=== PATIENT | male | born 1950 | race Caucasian/White ===

== ENCOUNTER 2018-03-26 23:22 | Inpatient (IN) | payer MEDICARE, OTHER ==
[~2018-03-26] VITALS: Ht 170.2 cm; Wt 50.8 kg
[2018-03-26] MEDS ORDERED: NAMENDA5 MG ORAL (23:37)
[2018-03-26] MEDS ORDERED: CITALOPRAM HBR40 M1 ORAL (23:37)
[2018-03-26] MEDS ORDERED: BUPROPION HCL150 M3 ORAL (23:37)
[2018-03-26] MEDS ORDERED: ABILIFY15 MG ORAL (23:38)
--- NOTE | 2018-03-26 23:42 | Emergency Room Report ---
History of Present Illness General Chief Complaint: General Complaint Source: Patient, Medical Record, EMS Present Illness HPI This is a 67-year-old gentleman coming from a half-way. He has multiple medical problem and is bedbound. He's also very contracted with multiple decubital ulcers. He presents with an altered mental status and low blood pressure from a half-way. He was admitted to rule out bacteremia and sepsis. There is no fever. No nausea no vomiting. Per half-way note his mentation is decreased compared to his baseline. There is no drainage from his wound. Denies any other complaint. Similar symptom in the past. Allergies: Coded Allergies: LEVOFLOXACIN (Verified Allergy, Unknown, 03/26/18) SULFAMETHOXAZOLE (Verified Allergy, Unknown, 03/26/18) TRIMETHOPRIM (Verified Allergy, Unknown, 03/26/18) Patient History Past Medical History: see triage record, old chart reviewed Past Surgical History: other Pertinent Family History: none Social History: Denies: smoking Immunizations: UTD Reviewed Nursing Documentation: PMH: Agreed; PSxH: Agreed Nursing Documentation-PMH Hx COPD: Yes - restrictive lung disorder, COPD History Of Psychiatric Problem: Yes - DEPRESSION Review of Systems Constitutional: Reports: weakness Eye: Denies: eye pain, blurred vision ENT: Denies: ear pain, nose congestion, throat swelling Respiratory: Denies: cough, shortness of breath Cardiovascular: Denies: chest pain, palpitations Gastrointestinal: Denies: abdominal pain, diarrhea, nausea, vomiting Musculoskeletal: Denies: back pain, joint pain Skin: Denies: rash Neurological: Denies: headache, numbness Endocrine: Denies: increased thirst, increased urine Hematologic/Lymphatic: Denies: easy bruising All Other Systems: negative except mentioned in HPI Physical Exam Vital Signs Date Time Temp Pulse Resp B/P (MAP) Pulse Ox O2 Delivery O2 Flow Rate FiO2 03/26/18 23:17 97.7 90 18 110/56 95 Room Air vitals normal. Repeat blood pressure Is 89/48 Sp02 EP Interpretation: reviewed, normal General Appearance: alert, cachetic, Chronically Ill Head: normocephalic, atraumatic Eyes: bilateral eye PERRL, bilateral eye EOMI ENT: hearing grossly normal, normal pharynx Neck: full range of motion, supple, no meningismus Respiratory: chest non-tender, lungs clear, normal breath sounds Cardiovascular #1: regular rate, rhythm, no murmur Gastrointestinal: normal bowel sounds, non tender, no mass, no organomegaly, no bruit, non-distended Musculoskeletal: back normal, other - contracted Neurologic: alert, oriented x3 Psychiatric: mood/affect normal Skin: warm/dry, other - Multiple decubital ulcers on hip, lower extremity, back. One right hip his stage 4. Procedures Critical Care Time Critical Care Time Critical care is mandated in this patient who presented with sepsis from UTI. Patient require my urgent intervention to attenuate the risks of metabolic collapse which may lead to cardiovascular collapse and . Critical care time is 35 minutes excluding any reportable procedure. Critical care time included evaluation, multiple reevaluation, looking at old charts, interpreting laboratory and diagnostic data, discussing case with patient and family and consultants, and charting. Medical Decision Making Diagnostic Impression: Primary Impression: Sepsis Qualified Codes: A41.9 - Sepsis, unspecified organism Additional Impressions: UTI (urinary tract infection) Qualified Codes: N30.00 - Acute cystitis without hematuria Anemia Qualified Codes: D64.9 - Anemia, unspecified Decubitus ulcer Qualified Codes: L89.90 - Pressure ulcer of unspecified site, unspecified stage ER Course Patient presents with hypotension secondary to sepsis. Responded with IV fluid. Most likely sources urine in wound wide spectrum antibiotics given. Blood pressure improved with IV fluid. I discussed case with Dr. Terrazas who will admit. EKG Diagnostic Results Rate: normal Rhythm: NSR ST Segments: no acute changes Rhythm Strip Diag. Results Rhythm Strip Time: 00:21 EP Interpretation: yes Rate: 88 Rhythm: NSR, no PVC's, no ectopy Chest X-Ray Diagnostic Results Chest X-Ray Diagnostic Results : Chest X-Ray Ordered: Yes # of Views/Limited/Complete: 1 View Indication: Other - AMS Interpretation: no consolidation, no effusion, no pneumothorax, no acute cardiopulmonary disease, other - spinal surgerical changes Last Vital Signs Date Time Temp Pulse Resp B/P (MAP) Pulse Ox O2 Delivery O2 Flow Rate FiO2 03/26/18 23:17 97.7 90 18 110/56 95 Room Air Status: improved Disposition: ADMITTED INPATIENT Condition: Serious Harsh Sweeney MD Mar 26, 2018 23:42
[2018-03-26] MEDS ORDERED: NS 1000ml 1,600 ML IVLG ONE (23:45)
[2018-03-27] VITALS (8 sets, daily range): BP systolic 84–120; BP diastolic 54–68
[2018-03-27 00:55] LABS: BILIRUBIN, URINE NEGATIVE (NEGATIVE); GLUCOSE, URINE (UA) NEGATIVE (NEGATIVE); KETONES,URINE NEGATIVE (NEGATIVE); LEUKOCYTE ESTERASE ,URINE 1+ (NEGATIVE); NITRITE,URINE NEGATIVE (NEGATIVE); PH,URINE 6 (4.5-8.0); PROTEIN,URINE 2+ (NEGATIVE); UROBILINOGEN,URINE NORMAL MG/DL (0.0-1.0)
[2018-03-27 00:55] LABS: ANION GAP 2 mmol/L (5-15); BLOOD UREA NITROGEN 13 mg/dL (7-18); CALCIUM 9.9 MG/DL (8.5-10.1); CARBON DIOXIDE 35 MMOL/L (21-32); CHLORIDE 99 MMOL/L (98-107); CREATININE 0.5 MG/DL (0.55-1.30); SODIUM 136 MMOL/L (136-145)
[2018-03-27 00:58] LABS: BASOPHILS % (AUTO) 0.4 % (0.0-2.0); EOSINOPHILS % (AUTO) 2.2 % (0.0-3.0); HEMATOCRIT 27.4 % (42.0-52.0); HEMOGLOBIN 8.8 G/DL (14.2-18.0); LYMPHOCYTES % (AUTO) 11.8 % (20.0-45.0); MEAN CORPUSCULAR VOLUME 81 FL (80-99); MONOCYTES % (AUTO) 10.9 % (1.0-10.0); NEUTROPHILS % (AUTO) 74.8 % (45.0-75.0); PLATELET COUNT 554 K/UL (150-450); RED BLOOD COUNT 3.39 M/UL (4.70-6.10); RED CELL DISTRIBUTION WIDTH 14.1 % (11.6-14.8); WHITE BLOOD COUNT 8.7 K/UL (4.8-10.8)
[2018-03-27 01:01] LABS: APPEARANCE,URINE CLEAR; COLOR,URINE YELLOW
[2018-03-27 01:08] LABS: ALANINE AMINOTRANSFERASE 32 U/L (12-78); ALBUMIN 1.9 G/DL (3.4-5.0); ALBUMIN/GLOBULIN RATIO 0.4 (1.0-2.7); ALKALINE PHOSPHATASE 116 U/L (46-116); ASPARTATE AMINO TRANSFERASE 29 U/L (15-37); BILIRUBIN,TOTAL 0.2 MG/DL (0.2-1.0); CKMB 5.3 NG/ML (0.0-3.6); CREATINE KINASE 260 U/L (26-308)
[2018-03-27] MEDS ORDERED: Vancomycin 1 GM in D5W 275 ML IVPB ONE (01:15)
[2018-03-27] MEDS ORDERED: Cefepime HCl 1 GM in D5W 55 ML IVPB ONE (01:15)
[2018-03-27] MEDS ORDERED: METHADONE HCL10 MG PO (05:55)
[2018-03-27] MEDS ORDERED: FLUTICASONE PRO16 G1 NASAL (05:55)
[2018-03-27] MEDS ORDERED: GABAPENTIN600 MG ORAL (05:55)
[2018-03-27] MEDS ORDERED: FERROUS SULFAT325 MG ORAL (05:55)
[2018-03-27] MEDS ORDERED: MIDODRINE HCL10 MG ORAL (05:56)
[2018-03-27] MEDS ORDERED: INVANZ1 GM IVPB (06:30)
[2018-03-27] MEDS ORDERED: SENNA8.6 M2 PO (06:30)
[2018-03-27] MEDS ORDERED: JUVEN PACKET1 EAC1 PO (06:30)
[2018-03-27] MEDS ORDERED: VITAMIN D250000 UNI1 ORAL (06:30)
[2018-03-27] MEDS ORDERED: VIBRAMYCIN100 MG ORAL (06:30)
[2018-03-27] MEDS ORDERED: ASCORBIC ACID500 MG ORAL (06:30)
[2018-03-27] MEDS ORDERED: XGEVA120 MG/1.7 SUBQ (06:30)
[2018-03-27] MEDS ORDERED: ZINC SULFATE220 M1 ORAL (06:30)
[2018-03-27] MEDS ORDERED: CULTURELLE1 EACH ORAL (06:30)
[2018-03-27] MEDS ORDERED: NAMENDA5 MG ORAL (06:30)
[2018-03-27] MEDS ORDERED: ABILIFY15 MG ORAL (06:30)
[2018-03-27] MEDS ORDERED: DUONEB 0.5-3(2.53 ML HHN (06:30)
[2018-03-27] MEDS ORDERED: DOCUSATE SODIU100 MG ORAL (06:30)
[2018-03-27] MEDS ORDERED: HEPARIN SO5000 UNIT2 SUBQ (06:30)
[2018-03-27] MEDS ORDERED: BUPROPION HCL100 MG ORAL (06:30)
[2018-03-27] MEDS ORDERED: CYCLOBENZAPRINE10 MG ORAL (06:30)
[2018-03-27] MEDS ORDERED: DULCOLAX10 MG RC (06:30)
[2018-03-27] MEDS ORDERED: [UNRECOGNIZED DRUG - CODE] PO (06:30)
[2018-03-27] MEDS ORDERED: PANTOPRAZOLE SO40 MG ORAL (06:30)
[2018-03-27] MEDS ORDERED: Albuterol/Ipratropium 3ml neb HHN PRN (07:00)
[2018-03-27] MEDS ORDERED: Midodrine 10mg tab ORAL PRN (07:00)
[2018-03-27] MEDS: 1/2NS w/KCl 20mEq 1000ml 1,000 ML IV SCH (08:00)
[2018-03-27] MEDS ORDERED: Zinc Sulfate 220mg cap ORAL SCH (09:00)
[2018-03-27] MEDS ORDERED: Cyclobenzaprine 10mg Tab ORAL PRN (09:00)
[2018-03-27] MEDS ORDERED: Flonase Nasal Inhaler 16gm NASAL SCH (09:00)
[2018-03-27] MEDS ORDERED: Vitamin D 50,000 units cap ORAL SCH (09:00)
[2018-03-27] MEDS: Memantine 5 MG TAB ORAL SCH ×2 (09:00→17:21)
[2018-03-27] MEDS ORDERED: Lactobacillus-GG tablet ORAL SCH (09:00)
[2018-03-27] MEDS: Heparin 5000 units/ml inj SUBQ SCH ×2 (09:00→21:10)
[2018-03-27] MEDS ORDERED: Ascorbic Acid 500mg tab ORAL SCH (09:00)
[2018-03-27] MEDS ORDERED: Memantine 10mg tab ORAL SCH (09:00)
[2018-03-27] MEDS ORDERED: Docusate 100mg cap ORAL SCH (09:00)
[2018-03-27] MEDS ORDERED: Sennosides 8.6mg tab ORAL SCH (09:00)
[2018-03-27] MEDS: BuPROPion SR 150mg tab ORAL SCH ×2 (09:00→21:08)
--- NOTE | 2018-03-27 09:45 | History and Physical Report ---
DATE OF ADMISSION: 03/27/2018 CHIEF COMPLAINT: Weakness and altered level of consciousness. HISTORY OF PRESENT ILLNESS: This is a 67-year-old unfortunate male from [facility]. I saw the patient several weeks ago in his snf. This is an unfortunate gentleman that comes with history of paraplegia, neurogenic bladder, and multiple decubitus ulcers. The patient has been wandering between multiple hospitals and nursing homes during the last several years. As a result of his spine problems and paralysis, the patient underwent multiple orthopedic procedures and debridement of his decubitus. Among others, the patient was in [facility]. The patient was transferred to this hospital due to altered level of consciousness and hypotension. PAST MEDICAL HISTORY: 1. Neurogenic bladder. 2. Scheuermann's kyphosis deformity, status post T2-L1 fusion posterior. 3. Status post C7-T2 laminectomy. 4. Status post multiple scoliosis surgeries at [facility]. 5. History of paraplegia. 6. History of multiple decubitus ulcers. 7. 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 8. History of recurrent septicemia. 9. Chronic anemia due to chronic infection. 10. Restrictive lung disease. 11. Severe protein-calorie malnutrition. 12. Depression. 13. Recurrent osteomyelitis of the femur and ischial tuberosity of the left hip. MEDICATIONS: Abilify, ascorbic acid, bupropion SR, Celexa, cyclobenzaprine, sodium docusate, doxycycline, Dulcolax, DuoNeb inhalation, vitamin D, ____, iron sulfate, Flonase nasal solution, gabapentin, subcutaneous heparin, Alex nutritional supplement, and lactobacillus. ALLERGIES: To levofloxacin and sulfonamide. FAMILY HISTORY: Unable to obtain. The patient is weak and confused. SOCIAL HISTORY: Unable to obtain. The patient is weak and confused. REVIEW OF SYSTEMS: Unable to obtain. The patient is weak and confused. PHYSICAL EXAMINATION: GENERAL: This is an elderly cachectic male, who is in no acute distress. VITAL SIGNS: Blood pressure 99/60, pulse 84 and regular, respirations 16, and temperature 98.4. HEENT: The head shows advanced muscle wasting and poor dental hygiene. NECK: Supple. Trachea midline. There was no lymphadenopathy or thyromegaly. LUNGS: Few bilateral wheezes. HEART: Regular rate and rhythm without rubs, murmurs, or gallops. ABDOMEN: Soft and nontender. Bowel sounds were active. EXTREMITIES: Notable for advanced muscle wasting. SKIN: He has multiple decubitus ulcers, which include the right ankle, right foot, right heel, left malleolus, right upper buttock, left buttock, and right hip. NEUROLOGIC: The patient has neurogenic bladder. He is paralyzed. He is alert, but debilitated. LABORATORY AND ANCILLARY DATA: CBC, hematocrit 27.4, WBC 8.7. Chemistry, CO2 level to be 35. Albumin 1.9, otherwise within normal limits. Urinalysis, 10 to 15 rbc's, 5 to 10 white blood cells. Cultures results pending. ASSESSMENT: 1. Hypotension, multifactorial, rule out sepsis. 2. Neurogenic bladder. 3. Scheuermann's kyphosis deformity, status post T2-L1 fusion posterior. 4. Status post C7-T2 laminectomy. 5. Status post multiple scoliosis surgeries at [facility]. 6. History of paraplegia. 7. History of multiple decubitus ulcers. 8. 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 9. History of recurrent septicemia. 10. Chronic anemia due to chronic infection. 11. Restrictive lung disease. 12. Severe protein-calorie malnutrition. 13. Depression. 14. Recurrent osteomyelitis of the femur and ischial tuberosity of the left hip. PLAN: 1. IV fluids. 2. Panculture. 3. Modify the patient's medications, which in my opinion include too many mood altering medications. Kinga Marcano M.D. : EZEQUIEL/SHAR JOB#: [id number] CC:
--- NOTE | 2018-03-27 10:48 | Diagnostic Imaging Report ---
Indication: Dyspnea Comparison: None A single view chest radiograph was obtained. Findings: Extensive fusion rods pedicle screws noted throughout the cervical: The thoracic spine. There is an apparent kyphosis deformity of the upper thoracic/cervical spine. The lungs are clear. There are old rib fractures on the right. Heart size is borderline enlarged. The patient is rotated. IMPRESSION: No acute cardiopulmonary disease identified. Extensive fusion of the cervical thoracic spine
--- NOTE | 2018-03-27 11:30 | Consultation ---
DATE OF CONSULTATION: 03/27/2018 INFECTIOUS DISEASES CONSULTATION: CONSULTING PHYSICIAN: Luis Peraza M.D. REFERRING PHYSICIAN: Kinga Marcano M.D. REASON FOR CONSULTATION: Urinary tract infection. HISTORY OF PRESENTING ILLNESS: This is a 67-year-old gentleman with history of neurogenic bladder, kyphosis, status post fusion, status post C7 to T2 laminectomy, and paraplegia who comes in because of altered level of consciousness and hypotension. He was found to have a urinary tract infection and an Infectious Diseases consultation has been obtained for antibiotics. PAST MEDICAL HISTORY: 1. History of neurogenic bladder. 2. Kyphosis, status post C2-L1 fusion. 3. Status post C7 to T2 laminectomy. 4. Scoliosis surgeries. 5. Paraplegia. 6. Decubitus ulcers. 7. Anemia. 8. Restrictive lung disease. 9. Depression. 10. History of recurrent osteomyelitis of the femur and ischial tuberosity of the left hip. SOCIAL HISTORY: Unknown. FAMILY HISTORY: Unknown. REVIEW OF SYSTEMS: Unable to obtain currently. MEDICATIONS: As an inpatient, the patient is on Abilify, ascorbic acid, bupropion, Colace, ergocalciferol, ferrous sulfate, fluticasone, subcutaneous heparin, Lactobacillus, Namenda, methadone, Protonix, Senokot, zinc sulfate, Dulcolax, albuterol, ipratropium, and midodrine. ALLERGIES: 1. Levaquin. 2. Bactrim. PHYSICAL EXAMINATION: VITAL SIGNS: Temperature of 98.7, T-max of. 98.7, pulse of 92, respiratory rate of 16, blood pressure 120/62, and O2 saturation of 98%. HEENT: Pupils equally reactive to light and accommodation. Mouth appears clean without thrush. NECK: Supple. No adenopathy. No JVD. CARDIOVASCULAR: Regular rate and rhythm. No murmurs. LUNGS: Clear to auscultation bilaterally. No crackles. No wheezes. ABDOMEN: Soft and nontender. No organomegaly. EXTREMITIES: No cyanosis, no clubbing, no edema. LABORATORY AND DIAGNOSTIC DATA: White count 8.7, hemoglobin 8.8, hematocrit 27.4, MCV 81, and platelet count of 554 with neutrophils of 74%. Sodium 136, potassium 4, chloride 99, bicarb 35, BUN 13, creatinine 0.5, and glucose 96. Calcium 9.9. Total bilirubin 0.2, AST 29, ALT 32, and alkaline phosphatase 116. CK of 260, CK-MB 5.3, and troponin 0. Total protein 7.2. Albumin 1.9. UA showing 5 to 10 white cells. ASSESSMENT: This is a 67-year-old gentleman with history of paraplegia, scoliosis, and kyphosis who comes in with altered mental status and is found to have. 1. Urinary tract infection. 2. Anemia. 3. Paraplegia. PLAN: 1. We will order urine cultures. 2. We will start the patient on Zosyn. 3. We will follow up cultures and adjust antibiotics accordingly. I would like to thank, Dr. Marcano, for this consultation. Luis Peraza M.D. DR: BRYAN JOB#: [id number] CC: Kinga Marcano M.D.; Fax#: [phone]
--- NOTE | 2018-03-27 11:37 | Consultation ---
History of Present Illness General Date patient seen: Mar 27, 2018 Chief Complaint: General Complaint Reason for Consultation: decutibus ulcers Present Illness HPI 67 year old male with multiple medical comorbidities who is a [facility] resident with paralysis presented after episode of altered mental status and hypotension. Patient at [facility] when noted to be altered. currently admitted to [facility] for care and management. upon admission noted to have multiple decubitus ulcers at different stages of healing. surgery called to evaluate. patient seen, chart reviewed, patient examined. patient awake and responsive. states he is doing better now. no complaints. has noted wounds for some time and states has been taking care of at facilities he has been. Allergies: Coded Allergies: LEVOFLOXACIN (Verified Allergy, Unknown, 03/26/18) SULFAMETHOXAZOLE (Verified Allergy, Unknown, 03/26/18) TRIMETHOPRIM (Verified Allergy, Unknown, 03/26/18) Medication History Scheduled Arginine/Glutamine/Calcium Hmb (Alex Packet), 1 EACH PO DAILY, (Reported) Aripiprazole* (Abilify*), 15 MG ORAL DAILY, (Reported) Aripiprazole* (Abilify*), 15 MG ORAL HS, (Reported) Ascorbic Acid* (Ascorbic Acid*), 500 MG ORAL DAILY, (Reported) Bupropion Hcl* (Bupropion Hcl Sr*), 150 MG ORAL EVERY 12 HOURS, (Reported) Citalopram Hydrobromide* (Citalopram Hbr*), 40 MG ORAL DAILY, (Reported) Cyclobenzaprine Hcl* (Flexeril*), 10 MG ORAL THREE TIMES A DAY, (Reported) Denosumab (Xgeva), 60 MG SUBQ every 6 months, (Reported) Docusate Sodium* (Docusate Sodium*), 200 MG ORAL DAILY, (Reported) Doxycycline Hyclate* (Vibramycin*), 100 MG ORAL EVERY 12 HOURS, (Reported) Ergocalciferol (Vitamin D2)* (Vitamin D*), 50,000 UNIT ORAL ONCE A WEEK, ( Reported) Ertapenem Sodium* (INVanz*), 1 GM IVPB Q24H, (Reported) Ferrous Sulfate* (Ferrous Sulfate*), 325 MG ORAL DAILY, (Reported) Fluticasone Propionate* (Fluticasone Propionate*), 2 SPRAY NASAL DAILY, ( Reported) Gabapentin* (Gabapentin*), 600 MG ORAL BIDAC, (Reported) Heparin Sod (Porcine) (Heparin Sodium*), 5,000 UNITS SUBQ EVERY 12 HOURS, ( Reported) Lactobacillus Rhamnosus Gg* (Culturelle*), 1 CAP ORAL DAILY, (Reported) Memantine Hcl* (Namenda*), 5 MG ORAL TWICE A DAY, (Reported) Memantine Hcl* (Namenda*), 5 MG ORAL TWICE A DAY, (Reported) Methadone Hcl* (Methadone*), 30 MG PO DAILY, (Reported) Pantoprazole* (Pantoprazole*), 40 MG ORAL DAILY, (Reported) Sennosides (Senna), 8.6 MG PO DAILY, (Reported) Zinc Sulfate (Zinc Sulfate*), 220 MG ORAL DAILY, (Reported) [multivital-m], 1 TAB PO DAILY, (Reported) Scheduled PRN Bisacodyl (Dulcolax), 10 MG RC DAILY PRN for Constipation, (Reported) Ipratropium/Albuterol Sulfate (DuoNeb 0.5-3(2.5)mg/3ml), 3 ML HHN BID PRN for Shortness of Breath, (Reported) Midodrine* (Proamatine*), 5 MG ORAL BID PRN for For hypotension, (Reported) Discontinued Medications Bupropion Hcl* (Bupropion Hcl*), 150 MG ORAL DAILY, (Reported) Discontinued Reason: Medication dose changed Patient History History Provided By: Patient, Medical Record, PMD Healthcare decision maker Resuscitation status Advanced Directive on File Past Medical/Surgical History Past Medical/Surgical History: (1) Decubitus ulcer (2) Anemia (3) Sepsis (4) UTI (urinary tract infection) (5) Sepsis (6) UTI (urinary tract infection) Review of Systems All Other Systems: negative except mentioned in HPI Physical Exam General Appearance: no apparent distress, alert Lines, tubes and drains: peripheral HEENT: mucous membranes moist Neck: normal inspection Respiratory/Chest: normal breath sounds, no respiratory distress, no accessory muscle use Cardiovascular/Chest: normal rate Abdomen: soft, no organomegaly, no mass Extremities: other Skin Exam: other Neurologic: alert, responsive, other Last 24 Hour Vital Signs Date Time Temp Pulse Resp B/P (MAP) Pulse Ox O2 Delivery O2 Flow Rate FiO2 03/27/18 08:00 98.7 92 16 120/62 (81) 11/2/18 07:51 98 03/27/18 04:19 Room Air 03/27/18 04:00 98.2 86 16 99/60 (73) 84 03/27/18 04:00 85 03/27/18 02:46 90 03/27/18 02:40 97.9 86 112/68 (83) 94 03/27/18 02:30 98.1 85 16 101/56 98 Room Air 03/27/18 02:30 98.1 88 16 101/56 99 Room Air 03/27/18 00:00 98.2 88 15 97/54 99 Room Air 03/27/18 00:00 87 16 Room Air 98 03/26/18 23:17 97.7 90 18 110/56 95 Room Air Intake and Output 03/26/18 03/27/18 19:00 07:00 Intake Total 1100 ml Output Total 625 ml Balance 475 ml Intake IV Total 1100 ml Output Urine Total 625 ml Laboratory Tests Test 03/27/18 00:30 03/27/18 00:32 White Blood Count 8.7 K/UL (4.8-10.8) Red Blood Count 3.39 M/UL (4.70-6.10) L Hemoglobin 8.8 G/DL (14.2-18.0) L Hematocrit 27.4 % (42.0-52.0) L Mean Corpuscular Volume 81 FL (80-99) Mean Corpuscular Hemoglobin 25.9 PG (27.0-31.0) L Mean Corpuscular Hemoglobin Concent 32.0 G/DL (32.0-36.0) Red Cell Distribution Width 14.1 % (11.6-14.8) Platelet Count 554 K/UL (150-450) H Mean Platelet Volume 4.6 FL (6.5-10.1) L Neutrophils (%) (Auto) 74.8 % (45.0-75.0) Lymphocytes (%) (Auto) 11.8 % (20.0-45.0) L Monocytes (%) (Auto) 10.9 % (1.0-10.0) H Eosinophils (%) (Auto) 2.2 % (0.0-3.0) Basophils (%) (Auto) 0.4 % (0.0-2.0) Sodium Level 136 MMOL/L (136-145) Potassium Level 4.0 MMOL/L (3.5-5.1) Chloride Level 99 MMOL/L (98-107) Carbon Dioxide Level 35 MMOL/L (21-32) H Anion Gap 2 mmol/L (5-15) L Blood Urea Nitrogen 13 mg/dL (7-18) Creatinine 0.5 MG/DL (0.55-1.30) L Estimat Glomerular Filtration Rate > 60 mL/min (>60) Glucose Level 96 MG/DL (74-106) Lactic Acid Level 0.80 mmol/L (0.4-2.0) Calcium Level 9.9 MG/DL (8.5-10.1) Total Bilirubin 0.2 MG/DL (0.2-1.0) Aspartate Amino Transf (AST/SGOT) 29 U/L (15-37) Alanine Aminotransferase (ALT/SGPT) 32 U/L (12-78) Alkaline Phosphatase 116 U/L (46-116) Total Creatine Kinase 260 U/L (26-308) Creatine Kinase MB 5.3 NG/ML (0.0-3.6) H Creatine Kinase MB Relative Index 2.0 Troponin I 0.000 ng/mL (0.000-0.056) Total Protein 7.2 G/DL (6.4-8.2) Albumin 1.9 G/DL (3.4-5.0) L Globulin 5.3 g/dL Albumin/Globulin Ratio 0.4 (1.0-2.7) L Urine Color Yellow Urine Appearance Clear Urine pH 6 (4.5-8.0) Urine Specific [place] 1.025 (1.005-1.035) Urine Protein 2+ (NEGATIVE) H Urine Glucose (UA) Negative (NEGATIVE) Urine Ketones Negative (NEGATIVE) Urine Blood 2+ (NEGATIVE) H Urine Nitrite Negative (NEGATIVE) Urine Bilirubin Negative (NEGATIVE) Urine Urobilinogen Normal MG/DL (0.0-1.0) Urine Leukocyte Esterase 1+ (NEGATIVE) H Urine RBC 10-15 /HPF (0 - 0) H Urine WBC 5-10 /HPF (0 - 0) H Urine Squamous Epithelial Cells None /LPF (NONE/OCC) Urine Calcium Oxalate Crystals Few /LPF (NONE) Urine Bacteria Few /HPF (NONE) Microbiology Date/Time Source Procedure Growth Status 03/27/18 01:30 Rectum Received Height (Feet): 5 Height (Inches): 7.00 Weight (Pounds): 112 Medications Current Medications Medications (Trade) Dose Ordered Sig/Birdie Route PRN Reason Start Time Stop Time Status Last Admin Dose Admin Albuterol/ Ipratropium (Albuterol/ Ipratropium) 3 ml BIDPRN PRN HHN Shortness of Breath 03/27/18 07:00 04/01/18 06:59 Aripiprazole (Abilify) 15 mg Q12HR ORAL 03/27/18 09:00 04/26/18 08:59 03/27/18 09:00 Ascorbic Acid (Vitamin C) 500 mg DAILY ORAL 03/27/18 09:00 04/26/18 08:59 03/27/18 09:00 Bisacodyl (Dulcolax) 10 mg DAILYPRN PRN RECTAL Constipation 03/27/18 07:00 04/26/18 06:59 Bupropion HCl (Wellbutrin SR) 150 mg EVERY 12 HOURS ORAL 03/27/18 09:00 04/26/18 08:59 03/27/18 09:00 Docusate Sodium (Colace) 200 mg DAILY ORAL 03/27/18 09:00 04/26/18 08:59 03/27/18 09:00 Ergocalciferol (Drisdol) 50,000 intlu ONCE A WEEK ORAL 03/27/18 09:00 04/26/18 08:59 03/27/18 09:00 Ferrous Sulfate (Feosol) 325 mg DAILY ORAL 03/27/18 09:00 04/26/18 08:59 03/27/18 09:00 Fluticasone Propionate (Flonase) 2 spray DAILY NASAL 03/27/18 09:00 04/26/18 08:59 03/27/18 11:03 Heparin Sodium (Porcine) (Heparin 5000 units/ml) 5,000 units EVERY 12 HOURS SUBQ 03/27/18 09:00 04/26/18 08:59 03/27/18 09:00 Lactobacillus Acidophilus (Culturelle) 1 tab DAILY ORAL 03/27/18 09:00 04/26/18 08:59 03/27/18 09:00 Memantine (Namenda) 5 mg TWICE A DAY ORAL 03/27/18 09:00 04/26/18 08:59 03/27/18 09:00 Methadone HCl (Methadone HCl) 30 mg DAILYPRN PRN ORAL 30-45 minutes before woundcare 03/27/18 09:00 04/03/18 08:59 03/27/18 11:05 Midodrine (Pro-Amatine) 5 mg BIDPRN PRN ORAL SBP less than 90 03/27/18 07:00 04/26/18 06:59 Pantoprazole (Protonix) 40 mg DAILY ORAL 03/27/18 09:00 04/26/18 08:59 03/27/18 09:00 Piperacillin Sod/ Tazobactam Sod 3.375 gm/Dextrose 100 ml @ 25 mls/hr EVERY 8 HOURS IV 03/27/18 12:00 04/01/18 11:59 Sennosides (Senokot) 8.6 mg DAILY ORAL 03/27/18 09:00 04/26/18 08:59 03/27/18 09:00 Sodium 1,000 ml @ 50 mls/hr Q20H IV 03/27/18 08:00 04/26/18 07:59 03/27/18 08:00 Zinc Sulfate (Zinc Sulfate) 220 mg DAILY ORAL 03/27/18 09:00 04/26/18 08:59 03/27/18 09:00 Assessment/Plan Problem List: (1) Decubitus ulcer Assessment & Plan: Pt presents with multiple pressure injuries. Full thickness pressure injury to Thoracic spine(L)2cm x (W)2cm x (D)2.6cm with undermining 9-3by 3.8cm @11o'clock. Borders and periwound indurated with non- blanchable erythema. Small amt non-odorous serosanguineous exudate noted. Inferior,but in close proximity to above wound 2nd full thickness pressure injury noted with 100% slough(L)0.4cm x (W)0.3cm with red indurated borders. #3 non-blanchable red areas noted to posterior R ribs in close proximity. Full thickness pressure injury to R trochanter (L)11.7cm x (W)10cm x(D)0.7cm .Wound bed moist,with 25% mixed slough/necrosis ,but otherwise granular with macerated. Periwound erythema with induration noted. Full thickness pressure injury to R Iliac(L)7cm x (W)6.7cm x (D) 1.2cm.[id number] by 2.1cm @12o'clock. Wound bed moist,granular with trace biofilm noted. small amt non-odorous serous exudate noted. Full thickness pressure injury to R Ischium (L)7cm x (W)5cm x (D) 3.5cm.Undermining 11-1by3.5cm @12 o'clock.Wound bed 75% mixed slough / necrosis.Small amt purulent exudate with mild odor noted. Full thickness pressure injury with 100% soft khanna necrosis noted to sacrum(L) 5.5cm x (W)2.5cm .Borders and periwound indurated with non-blanchable erythema noted . Scattered non-blanchable red areas noted to both shoulders, both elbows and R earlobe. Full thickness pressure injury to lateral R malleolus with 95% eschar with bordering soft slough (L)1.7cm x (W)2cm .Detached red borders .Periwound with non-blanchable erythema. Distal lateral R foot with stable dry eschar (L)1cm x (W)1cm Periwound without erythema or induration. R heel Boggy with Non-blanchable erythema with maroon discoloration centrally (L )2.2cm x (W)1.5cm 2.2cm x (W)1.4cm. L 1st metatarsal DTPI Noted .Wound bed fluctuant-maroon with red borders (L) 2.5cm x (W)1.5cm. DTPI noted to R achilles .Wound bed fluctuant -maroon with red borders(L)3cm x ( W)2 cm. Distal R tibia full thickness pressure injury with 75% slough otherwise pink with red borders. L heel Boggy with non-blanchable erythema Tx. Plan: Cleanse wounds R ischium,Sacrum and Back with Saline.Pack loosely with Therahoney impregnated gauze.Apply Cavilon Periwound. Cover with Abd pad with Tegaderm drsg daily and prn. Cleanse wound R trochanter with Saine.Loosely pack with Hydrogel impregnated Gauze.Cavilon to Borders.Cover with Optifoam drsg Daily and prn. Apply Cavilon to R earlobe and cover with Optifoam drsg. Change every 7 days and prn. Cleanse wound lateral R tibia with Saline.Apply Therahoney and cover with Optifoam drsg every 3 dyas and prn Maintain protective Optifoam drsgs to R and L hips and change every 7 days and prn. Apply Cavilon Wipes to Both heels, DTPIs and red areas both feet .Cover with Abd pads and wrap both lower ext with soft torrie.Change every 3 days and prn. Reposition at minimum every [address] hours [address] as tolerated[address] pillow between knees. Air Fluidized mattress. Off-load heels with pillow. ICD Codes: L89.90 - Pressure ulcer of unspecified site, unspecified stage SNOMED: [id number] Qualifiers: Qualified Codes: L89.90 - Pressure ulcer of unspecified site, unspecified stage (2) Sepsis ICD Codes: A41.9 - Sepsis, unspecified organism SNOMED: 89740509 Qualifiers: Qualified Codes: A41.9 - Sepsis, unspecified organism Regulo Hobbs Mar 27, 2018 11:37
[2018-03-28] VITALS: BP 100/55
[2018-03-28 04:00] VITALS: BP 96/57
[2018-03-28] MEDS: 1/2NS w/KCl 20mEq 1000ml 1,000 ML IV SCH ×2 (04:20→08:30)
[2018-03-28 05:09] LABS: HEMATOCRIT 27.8 % (42.0-52.0); HEMOGLOBIN 8.7 G/DL (14.2-18.0); MEAN CORPUSCULAR VOLUME 82 FL (80-99); PLATELET COUNT 495 K/UL (150-450); RED CELL DISTRIBUTION WIDTH 14.6 % (11.6-14.8); WHITE BLOOD COUNT 11.1 K/UL (4.8-10.8)
[2018-03-28 05:21] LABS: ANION GAP 6 mmol/L (5-15); BLOOD UREA NITROGEN 9 mg/dL (7-18); CALCIUM 10.2 MG/DL (8.5-10.1); CARBON DIOXIDE 33 MMOL/L (21-32); CHLORIDE 100 MMOL/L (98-107); CREATININE 0.6 MG/DL (0.55-1.30); POTASSIUM 3.7 MMOL/L (3.5-5.1); SODIUM 139 MMOL/L (136-145)
[2018-03-28 08:00] VITALS: BP 97/53
[2018-03-28] MEDS: Lactobacillus-GG tablet ORAL SCH (08:47)
[2018-03-28] MEDS: Memantine 5 MG TAB ORAL SCH ×2 (08:47→18:09)
[2018-03-28] MEDS: Ascorbic Acid 500mg tab ORAL SCH (08:47)
[2018-03-28] MEDS: Docusate 100mg cap ORAL SCH (08:48)
[2018-03-28] MEDS: Sennosides 8.6mg tab ORAL SCH (08:48)
[2018-03-28] MEDS: Flonase Nasal Inhaler 16gm NASAL SCH (08:48)
[2018-03-28] MEDS: Zinc Sulfate 220mg cap ORAL SCH (08:48)
[2018-03-28] MEDS: Heparin 5000 units/ml inj SUBQ SCH ×2 (08:51→22:08)
[2018-03-28] MEDS: BuPROPion SR 150mg tab ORAL SCH ×2 (08:54→22:13)
--- NOTE | 2018-03-28 09:24 | General Surgery Progress Note ---
General Surgery-Progress Note Subjective Additional Comments leukocytosis 11k. no acute events. comfortable Objective Last 24 Hour Vital Signs Date Time Temp Pulse Resp B/P (MAP) Pulse Ox O2 Delivery O2 Flow Rate FiO2 03/28/18 04:00 98.5 86 16 96/57 (70) 93 03/28/18 04:00 79 03/28/18 00:00 98.8 93 20 100/55 (70) 91 03/28/18 00:00 91 03/27/18 22:17 93 Room Air 03/27/18 21:00 Room Air 03/27/18 20:00 99.1 101 16 84/58 (67) 91 03/27/18 20:00 98 03/27/18 16:00 98.4 93 18 107/60 (76) 97 03/27/18 16:00 97 03/27/18 12:00 97 03/27/18 12:00 98.5 92 16 109/64 (79) 03/27/18 12:00 95 I&O Intake and Output 03/27/18 03/28/18 18:59 06:59 Intake Total 1150 ml 768.7 ml Output Total 850 ml 550 ml Balance 300 ml 218.7 ml Intake Oral 350 ml 120 ml IV Total 600 ml 648.7 ml Other 200 ml Output Urine Total 850 ml 550 ml Dressing: saturated Wound: other Drains: other Cardiovascular: RSR Respiratory: clear Abdomen: soft, non-tender, present bowel sounds Extremities: other Laboratory Tests Test 03/28/18 03:20 White Blood Count 11.1 K/UL (4.8-10.8) H Red Blood Count 3.40 M/UL (4.70-6.10) L Hemoglobin 8.7 G/DL (14.2-18.0) L Hematocrit 27.8 % (42.0-52.0) L Mean Corpuscular Volume 82 FL (80-99) Mean Corpuscular Hemoglobin 25.6 PG (27.0-31.0) L Mean Corpuscular Hemoglobin Concent 31.4 G/DL (32.0-36.0) L Red Cell Distribution Width 14.6 % (11.6-14.8) Platelet Count 495 K/UL (150-450) H Mean Platelet Volume 3.9 FL (6.5-10.1) L Neutrophils (%) (Auto) % (45.0-75.0) Lymphocytes (%) (Auto) % (20.0-45.0) Monocytes (%) (Auto) % (1.0-10.0) Eosinophils (%) (Auto) % (0.0-3.0) Basophils (%) (Auto) % (0.0-2.0) Neutrophils % (Manual) Pending Lymphocytes % (Manual) Pending Platelet Estimate Pending Platelet Morphology Pending Sodium Level 139 MMOL/L (136-145) Potassium Level 3.7 MMOL/L (3.5-5.1) Chloride Level 100 MMOL/L (98-107) Carbon Dioxide Level 33 MMOL/L (21-32) H Anion Gap 6 mmol/L (5-15) Blood Urea Nitrogen 9 mg/dL (7-18) Creatinine 0.6 MG/DL (0.55-1.30) Estimat Glomerular Filtration Rate > 60 mL/min (>60) Glucose Level 113 MG/DL (74-106) H Calcium Level 10.2 MG/DL (8.5-10.1) H Magnesium Level 1.7 MG/DL (1.8-2.4) L Plan Problems: (1) Decubitus ulcer Assessment & Plan: Pt presents with multiple pressure injuries. Full thickness pressure injury to Thoracic spine(L)2cm x (W)2cm x (D)2.6cm with undermining 9-3by 3.8cm @11o'clock. Borders and periwound indurated with non- blanchable erythema. Small amt non-odorous serosanguineous exudate noted. Inferior,but in close proximity to above wound 2nd full thickness pressure injury noted with 100% slough(L)0.4cm x (W)0.3cm with red indurated borders. #3 non-blanchable red areas noted to posterior R ribs in close proximity. Full thickness pressure injury to R trochanter (L)11.7cm x (W)10cm x(D)0.7cm .Wound bed moist,with 25% mixed slough/necrosis ,but otherwise granular with macerated. Periwound erythema with induration noted. Full thickness pressure injury to R Iliac(L)7cm x (W)6.7cm x (D) 1.2cm.[id number] by 2.1cm @12o'clock. Wound bed moist,granular with trace biofilm noted. small amt non-odorous serous exudate noted. Full thickness pressure injury to R Ischium (L)7cm x (W)5cm x (D) 3.5cm.Undermining 11-1by3.5cm @12 o'clock.Wound bed 75% mixed slough / necrosis.Small amt purulent exudate with mild odor noted. Full thickness pressure injury with 100% soft khanna necrosis noted to sacrum(L) 5.5cm x (W)2.5cm .Borders and periwound indurated with non-blanchable erythema noted . Scattered non-blanchable red areas noted to both shoulders, both elbows and R earlobe. Full thickness pressure injury to lateral R malleolus with 95% eschar with bordering soft slough (L)1.7cm x (W)2cm .Detached red borders .Periwound with non-blanchable erythema. Distal lateral R foot with stable dry eschar (L)1cm x (W)1cm Periwound without erythema or induration. R heel Boggy with Non-blanchable erythema with maroon discoloration centrally (L )2.2cm x (W)1.5cm 2.2cm x (W)1.4cm. L 1st metatarsal DTPI Noted .Wound bed fluctuant-maroon with red borders (L) 2.5cm x (W)1.5cm. DTPI noted to R achilles .Wound bed fluctuant -maroon with red borders(L)3cm x ( W)2 cm. Distal R tibia full thickness pressure injury with 75% slough otherwise pink with red borders. L heel Boggy with non-blanchable erythema Tx. Plan: Cleanse wounds R ischium,Sacrum and Back with Saline.Pack loosely with Therahoney impregnated gauze.Apply Cavilon Periwound. Cover with Abd pad with Tegaderm drsg daily and prn. Cleanse wound R trochanter with Saine.Loosely pack with Hydrogel impregnated Gauze.Cavilon to Borders.Cover with Optifoam drsg Daily and prn. Apply Cavilon to R earlobe and cover with Optifoam drsg. Change every 7 days and prn. Cleanse wound lateral R tibia with Saline.Apply Therahoney and cover with Optifoam drsg every 3 dyas and prn Maintain protective Optifoam drsgs to R and L hips and change every 7 days and prn. Apply Cavilon Wipes to Both heels, DTPIs and red areas both feet .Cover with Abd pads and wrap both lower ext with soft torrie.Change every 3 days and prn. Reposition at minimum every 2 hours or as tolerated. Place pillow between knees. Air Fluidized mattress. Off-load heels with pillow. (2) Sepsis Regulo Hobbs Mar 28, 2018 09:24
[2018-03-28 12:00] VITALS: BP 91/48
[2018-03-28] MEDS ORDERED: NS 275ml ONE (13:17)
[2018-03-28] MEDS ORDERED: Tubing IV Secondary IV ONE (13:17)
--- NOTE | 2018-03-28 14:48 | General Progress Note ---
Assessment/Plan Assessment/Plan Hypetension resolvin. IV Abx per ID. DC planning Subjective Allergies: Coded Allergies: LEVOFLOXACIN (Verified Allergy, Unknown, 03/26/18) SULFAMETHOXAZOLE (Verified Allergy, Unknown, 03/26/18) TRIMETHOPRIM (Verified Allergy, Unknown, 03/26/18) Subjective No new c/o Objective Last 24 Hour Vital Signs Date Time Temp Pulse Resp B/P (MAP) Pulse Ox O2 Delivery O2 Flow Rate FiO2 03/28/18 09:00 Room Air 03/28/18 08:00 97.7 88 20 97/53 (68) 93 03/28/18 08:00 89 03/28/18 04:00 98.5 86 16 96/57 (70) 93 03/28/18 04:00 79 03/28/18 00:00 98.8 93 20 100/55 (70) 91 03/28/18 00:00 91 03/27/18 22:17 93 Room Air 03/27/18 21:00 Room Air 03/27/18 20:00 99.1 101 16 84/58 (67) 91 03/27/18 20:00 98 03/27/18 16:00 98.4 93 18 107/60 (76) 97 03/27/18 16:00 97 Intake and Output 03/27/18 03/28/18 19:00 07:00 Intake Total 1200 ml 793.7 ml Output Total 850 ml 550 ml Balance 350 ml 243.7 ml Intake Oral 350 ml 120 ml IV Total 650 ml 673.7 ml Other 200 ml Output Urine Total 850 ml 550 ml Laboratory Tests 03/28/18 03:20: White Blood Count 11.1H, Red Blood Count 3.40L, Hemoglobin 8.7L, Hematocrit 27.8L, Mean Corpuscular Volume 82, Mean Corpuscular Hemoglobin 25.6L, Mean Corpuscular Hemoglobin Concent 31.4L, Red Cell Distribution Width 14.6, Platelet Count 495H, Mean Platelet Volume 3.9L, Neutrophils (%) (Auto) , Lymphocytes (%) (Auto) , Monocytes (%) (Auto) , Eosinophils (%) (Auto) , Basophils (%) (Auto) , Differential Total Cells Counted 100, Neutrophils % ( Manual) 95H, Lymphocytes % (Manual) 1L, Monocytes % (Manual) 2, Eosinophils % ( Manual) 0, Basophils % (Manual) 0, Band Neutrophils 2, Platelet Estimate IncreasedH, Platelet Morphology Normal, Hypochromasia 1+, Anisocytosis 1+, Sodium Level 139, Potassium Level 3.7, Chloride Level 100, Carbon Dioxide Level 33H, Anion Gap 6, Blood Urea Nitrogen 9, Creatinine 0.6, Estimat Glomerular Filtration Rate > 60, Glucose Level 113H, Calcium Level 10.2H, Magnesium Level 1.7L Height (Feet): 5 Height (Inches): 7.00 Weight (Pounds): 112 Objective Cachectic Cv RR Lungs CTA Abd SNT. BS + E No CCE Decubs same Kinga Marcano MD Mar 28, 2018 14:48
--- NOTE | 2018-03-28 15:03 | Cardiology Report ---
APPROVED REPORT EKG Measurement Heart [id number] Normal sinus rhythm Moderate voltage criteria for LVH, may be normal variant Borderline ECG
[2018-03-28 16:00] VITALS: BP 131/75
[2018-03-28 20:00] VITALS: BP 102/60
[2018-03-29] VITALS: BP 91/54
[2018-03-29] MEDS: 1/2NS w/KCl 20mEq 1000ml 1,000 ML IV SCH (00:18)
[2018-03-29 04:00] VITALS: BP 113/64
[2018-03-29 08:00] VITALS: BP 111/74
[2018-03-29] MEDS: Docusate 100mg cap ORAL SCH (08:07)
[2018-03-29] MEDS: Ascorbic Acid 500mg tab ORAL SCH (08:07)
[2018-03-29] MEDS: Sennosides 8.6mg tab ORAL SCH (08:07)
[2018-03-29] MEDS: Flonase Nasal Inhaler 16gm NASAL SCH (08:07)
[2018-03-29] MEDS: BuPROPion SR 150mg tab ORAL SCH ×2 (08:08→21:55)
[2018-03-29] MEDS: Memantine 5 MG TAB ORAL SCH ×2 (08:08→17:10)
[2018-03-29] MEDS: Zinc Sulfate 220mg cap ORAL SCH (08:08)
[2018-03-29] MEDS: Lactobacillus-GG tablet ORAL SCH (08:08)
[2018-03-29] MEDS: Heparin 5000 units/ml inj SUBQ SCH ×2 (08:09→21:56)
[2018-03-29] MEDS ORDERED: Midodrine 10mg tab ORAL PRN (08:30)
[2018-03-29] MEDS ORDERED: Albuterol/Ipratropium 3ml neb HHN PRN (08:30)
--- NOTE | 2018-03-29 09:31 | Infectious Diseases Prog Note ---
Assessment/Plan Assessment/Plan A; Fungal UTI Multiple pressure ulcer, ? infection VRE colonization Altered mental status Anemia Paraplegia Cachexia P: Continue Zosyn, add fluconazole Subjective ROS Limited/Unobtainable: No Constitutional: Reports: no symptoms Respiratory: Reports: no symptoms Cardiovascular: Reports: no symptoms Gastrointestinal/Abdominal: Reports: no symptoms Genitourinary: Reports: no symptoms Allergies: Coded Allergies: LEVOFLOXACIN (Verified Allergy, Unknown, 03/26/18) SULFAMETHOXAZOLE (Verified Allergy, Unknown, 03/26/18) TRIMETHOPRIM (Verified Allergy, Unknown, 03/26/18) Objective Vital Signs Last 24 Hour Vital Signs Date Time Temp Pulse Resp B/P (MAP) Pulse Ox O2 Delivery O2 Flow Rate FiO2 03/29/18 09:15 98 Room Air 03/29/18 08:00 97.3 89 18 111/74 (86) 95 03/29/18 04:00 85 03/29/18 04:00 98.3 89 21 113/64 (80) 86 03/29/18 00:00 85 03/29/18 00:00 98.2 89 21 91/54 (66) 92 03/28/18 22:02 95 Room Air 03/28/18 21:00 Room Air 03/28/18 20:00 97.3 101 22 102/60 (74) 86 03/28/18 20:00 104 03/28/18 16:00 97.7 92 20 131/75 (93) 92 03/28/18 16:00 95 03/28/18 12:00 97.7 66 16 91/48 (62) 87 03/28/18 12:00 93 Height (Feet): 5 Height (Inches): 7.00 Weight (Pounds): 112 General Appearance: cachetic HEENT: mucous membranes moist Respiratory/Chest: lungs clear Cardiovascular: normal rate Abdomen: soft, non tender Extremities: no edema Skin: ulcers, other - multiple more in right side Neurologic/Psychiatric: alert, responsive, other - paraplegic Microbiology Date/Time Source Procedure Growth Status 03/27/18 00:40 Blood Blood Culture - Preliminary NO GROWTH AFTER 48 HOURS Resulted 03/27/18 00:30 Blood Blood Culture - Preliminary NO GROWTH AFTER 48 HOURS Resulted 03/27/18 00:40 Other Gram Stain - Final Resulted 03/27/18 00:40 Wound Culture - Preliminary Gram Negative Bacillus 1 Resulted 03/27/18 14:00 Urine,Clean Catch Urine Culture - Preliminary YEAST Resulted 03/27/18 03:20 Sacral Wound Gram Stain - Final Resulted 03/27/18 03:20 Wound Culture - Preliminary Gram Negative Bacillus 1 Resulted 03/27/18 01:30 Rectum VRE Culture - Final Enterococcus Faecium - Vre Complete Current Medications Medications (Trade) Dose Ordered Sig/Birdie Route PRN Reason Start Time Stop Time Status Last Admin Dose Admin Albuterol/ Ipratropium (Albuterol/ Ipratropium) 3 ml BIDPRN PRN HHN Shortness of Breath 03/29/18 08:30 04/01/18 08:29 Aripiprazole (Abilify) 15 mg Q12HR ORAL 03/28/18 09:00 04/26/18 08:59 03/29/18 08:07 Ascorbic Acid (Vitamin C) 500 mg DAILY ORAL 03/28/18 09:00 04/26/18 08:59 03/29/18 08:07 Bisacodyl (Dulcolax) 10 mg DAILYPRN PRN RECTAL Constipation 03/29/18 08:30 04/26/18 08:29 Bupropion HCl (Wellbutrin SR) 150 mg EVERY 12 HOURS ORAL 03/28/18 09:00 04/26/18 08:59 03/29/18 08:08 Docusate Sodium (Colace) 200 mg DAILY ORAL 03/28/18 09:00 04/26/18 08:59 03/29/18 08:07 Ergocalciferol (Drisdol) 50,000 intlu ONCE A WEEK ORAL 04/03/18 09:00 04/26/18 08:59 Ferrous Sulfate (Feosol) 325 mg DAILY ORAL 03/28/18 09:00 04/26/18 08:59 03/29/18 08:08 Fluticasone Propionate (Flonase) 2 spray DAILY NASAL 03/28/18 09:00 04/26/18 08:59 03/29/18 08:07 Heparin Sodium (Porcine) (Heparin 5000 units/ml) 5,000 units EVERY 12 HOURS SUBQ 03/28/18 09:00 04/26/18 08:59 03/29/18 08:09 Lactobacillus Acidophilus (Culturelle) 1 tab DAILY ORAL 03/28/18 09:00 04/26/18 08:59 03/29/18 08:08 Memantine (Namenda) 5 mg TWICE A DAY ORAL 03/28/18 09:00 04/26/18 08:59 03/29/18 08:08 Methadone HCl (Methadone HCl) 30 mg DAILYPRN PRN ORAL 30-45 minutes before woundcare 03/28/18 09:00 04/03/18 08:59 03/29/18 05:01 Midodrine (Pro-Amatine) 5 mg BIDPRN PRN ORAL SBP less than 90 03/29/18 08:30 04/26/18 08:29 Pantoprazole (Protonix) 40 mg DAILY ORAL 03/28/18 09:00 04/26/18 08:59 03/29/18 08:08 Piperacillin Sod/ Tazobactam Sod 3.375 gm/Dextrose 100 ml @ 25 mls/hr EVERY 8 HOURS IV 03/28/18 14:00 04/01/18 11:59 03/29/18 05:35 Sennosides (Senokot) 8.6 mg DAILY ORAL 03/28/18 09:00 04/26/18 08:59 03/29/18 08:07 Sodium 1,000 ml @ 50 mls/hr Q20H IV 03/28/18 08:30 04/26/18 08:29 03/29/18 00:18 Zinc Sulfate (Zinc Sulfate) 220 mg DAILY ORAL 03/28/18 09:00 04/26/18 08:59 03/29/18 08:08 Aníbal Gee MD Mar 29, 2018 09:31
[2018-03-29] MEDS: Fluconazole 100mg tab ORAL SCH (10:20)
[2018-03-29 12:00] VITALS: BP 127/74
--- NOTE | 2018-03-29 12:30 | General Surgery Progress Note ---
General Surgery-Progress Note Subjective Additional Comments no acute events. stable. comfortable. Objective Last 24 Hour Vital Signs Date Time Temp Pulse Resp B/P (MAP) Pulse Ox O2 Delivery O2 Flow Rate FiO2 03/29/18 09:15 98 Room Air 03/29/18 09:00 Room Air 03/29/18 08:00 97.3 89 18 111/74 (86) 95 03/29/18 08:00 95 03/29/18 04:00 85 03/29/18 04:00 98.3 89 21 113/64 (80) 86 03/29/18 00:00 85 03/29/18 00:00 98.2 89 21 91/54 (66) 92 03/28/18 22:02 95 Room Air 03/28/18 21:00 Room Air 03/28/18 20:00 97.3 101 22 102/60 (74) 86 03/28/18 20:00 104 03/28/18 16:00 97.7 92 20 131/75 (93) 92 03/28/18 16:00 95 I&O Intake and Output 03/28/18 03/29/18 18:59 06:59 Intake Total 75 ml 150 ml Output Total 1700 ml 900 ml Balance -1625 ml -750 ml Intake Oral 150 ml IV Total 75 ml Output Urine Total 1700 ml 900 ml Dressing: saturated Wound: other Drains: other Cardiovascular: RSR Respiratory: clear Abdomen: soft, non-tender, present bowel sounds Extremities: other Plan Problems: (1) Decubitus ulcer Assessment & Plan: Pt presents with multiple pressure injuries. Full thickness pressure injury to Thoracic spine(L)2cm x (W)2cm x (D)2.6cm with undermining 9-3by 3.8cm @11o'clock. Borders and periwound indurated with non- blanchable erythema. Small amt non-odorous serosanguineous exudate noted. Inferior,but in close proximity to above wound 2nd full thickness pressure injury noted with 100% slough(L)0.4cm x (W)0.3cm with red indurated borders. #3 non-blanchable red areas noted to posterior R ribs in close proximity. Full thickness pressure injury to R trochanter (L)11.7cm x (W)10cm x(D)0.7cm .Wound bed moist,with 25% mixed slough/necrosis ,but otherwise granular with macerated. Periwound erythema with induration noted. Full thickness pressure injury to R Iliac(L)7cm x (W)6.7cm x (D) 1.2cm.[id number] by 2.1cm @12o'clock. Wound bed moist,granular with trace biofilm noted. small amt non-odorous serous exudate noted. Full thickness pressure injury to R Ischium (L)7cm x (W)5cm x (D) 3.5cm.Undermining 11-1by3.5cm @12 o'clock.Wound bed 75% mixed slough / necrosis.Small amt purulent exudate with mild odor noted. Full thickness pressure injury with 100% soft khanna necrosis noted to sacrum(L) 5.5cm x (W)2.5cm .Borders and periwound indurated with non-blanchable erythema noted . Scattered non-blanchable red areas noted to both shoulders, both elbows and R earlobe. Full thickness pressure injury to lateral R malleolus with 95% eschar with bordering soft slough (L)1.7cm x (W)2cm .Detached red borders .Periwound with non-blanchable erythema. Distal lateral R foot with stable dry eschar (L)1cm x (W)1cm Periwound without erythema or induration. R heel Boggy with Non-blanchable erythema with maroon discoloration centrally (L )2.2cm x (W)1.5cm 2.2cm x (W)1.4cm. L 1st metatarsal DTPI Noted .Wound bed fluctuant-maroon with red borders (L) 2.5cm x (W)1.5cm. DTPI noted to R achilles .Wound bed fluctuant -maroon with red borders(L)3cm x ( W)2 cm. Distal R tibia full thickness pressure injury with 75% slough otherwise pink with red borders. L heel Boggy with non-blanchable erythema Tx. Plan: Cleanse wounds R ischium,Sacrum and Back with Saline.Pack loosely with Therahoney impregnated gauze.Apply Cavilon Periwound. Cover with Abd pad with Tegaderm drsg daily and prn. Cleanse wound R trochanter with Saine.Loosely pack with Hydrogel impregnated Gauze.Cavilon to Borders.Cover with Optifoam drsg Daily and prn. Apply Cavilon to R earlobe and cover with Optifoam drsg. Change every 7 days and prn. Cleanse wound lateral R tibia with Saline.Apply Therahoney and cover with Optifoam drsg every 3 dyas and prn Maintain protective Optifoam drsgs to R and L hips and change every 7 days and prn. Apply Cavilon Wipes to Both heels, DTPIs and red areas both feet .Cover with Abd pads and wrap both lower ext with soft torrie.Change every 3 days and prn. Reposition at minimum every 2 hours or as tolerated. Place pillow between knees. Air Fluidized mattress. Off-load heels with pillow. (2) Sepsis Regulo Hobbs Mar 29, 2018 12:30
--- NOTE | 2018-03-29 12:55 | General Progress Note ---
Assessment/Plan Assessment/Plan Hypetension resolving. IV Abx per ID. DC planning Subjective Allergies: Coded Allergies: LEVOFLOXACIN (Verified Allergy, Unknown, 03/26/18) SULFAMETHOXAZOLE (Verified Allergy, Unknown, 03/26/18) TRIMETHOPRIM (Verified Allergy, Unknown, 03/26/18) Subjective No new c/o Objective Last 24 Hour Vital Signs Date Time Temp Pulse Resp B/P (MAP) Pulse Ox O2 Delivery O2 Flow Rate FiO2 03/29/18 09:15 98 Room Air 03/29/18 09:00 Room Air 03/29/18 08:00 97.3 89 18 111/74 (86) 95 03/29/18 08:00 95 03/29/18 04:00 85 03/29/18 04:00 98.3 89 21 113/64 (80) 86 03/29/18 00:00 85 03/29/18 00:00 98.2 89 21 91/54 (66) 92 03/28/18 22:02 95 Room Air 03/28/18 21:00 Room Air 03/28/18 20:00 97.3 101 22 102/60 (74) 86 03/28/18 20:00 104 03/28/18 16:00 97.7 92 20 131/75 (93) 92 03/28/18 16:00 95 Intake and Output 03/28/18 03/29/18 18:59 06:59 Intake Total 75 ml 150 ml Output Total 1700 ml 900 ml Balance -1625 ml -750 ml Intake Oral 150 ml IV Total 75 ml Output Urine Total 1700 ml 900 ml Height (Feet): 5 Height (Inches): 7.00 Weight (Pounds): 112 Objective Cachectic Cv RR Lungs CTA Abd SNT. BS + E No CCE Decubs same Kinga Marcano MD Mar 29, 2018 12:55
[2018-03-29 16:00] VITALS: BP 130/86
[2018-03-29 19:54] VITALS: BP 121/74
[2018-03-30] VITALS: BP 110/59
[2018-03-30] MEDS: 1/2NS w/KCl 20mEq 1000ml 1,000 ML IV SCH (00:45)
[2018-03-30 04:00] VITALS: BP 105/70
[2018-03-30 08:00] VITALS: BP 124/73
[2018-03-30] MEDS: Lactobacillus-GG tablet ORAL SCH (08:35)
[2018-03-30] MEDS: Memantine 5 MG TAB ORAL SCH (08:35)
[2018-03-30] MEDS: Fluconazole 100mg tab ORAL SCH (08:35)
[2018-03-30] MEDS: Sennosides 8.6mg tab ORAL SCH (08:35)
[2018-03-30] MEDS: Docusate 100mg cap ORAL SCH (08:36)
[2018-03-30] MEDS: BuPROPion SR 150mg tab ORAL SCH (08:36)
[2018-03-30] MEDS: Ascorbic Acid 500mg tab ORAL SCH (08:36)
[2018-03-30] MEDS: Flonase Nasal Inhaler 16gm NASAL SCH (08:36)
[2018-03-30] MEDS: Zinc Sulfate 220mg cap ORAL SCH (08:36)
[2018-03-30] MEDS: Heparin 5000 units/ml inj SUBQ SCH (08:38)
[2018-03-30 11:23] LABS: HEMATOCRIT 29.7 % (42.0-52.0); HEMOGLOBIN 9.6 G/DL (14.2-18.0); MEAN CORPUSCULAR VOLUME 82 FL (80-99); PLATELET COUNT 542 K/UL (150-450); RED BLOOD COUNT 3.62 M/UL (4.70-6.10); RED CELL DISTRIBUTION WIDTH 14.2 % (11.6-14.8); WHITE BLOOD COUNT 10.1 K/UL (4.8-10.8)
--- NOTE | 2018-03-30 11:33 | Infectious Diseases Prog Note ---
Assessment/Plan Assessment/Plan antibiotics : zosyn, fluconazole A 1. fungal UTI 2. paraplegia 3. anemia 4. rectal VRE colonization P 1. continue fluconazole 5 more days 2. d/c zosyn 3. will follow up cultures Subjective ROS Limited/Unobtainable: Yes Allergies: Coded Allergies: LEVOFLOXACIN (Verified Allergy, Unknown, 03/26/18) SULFAMETHOXAZOLE (Verified Allergy, Unknown, 03/26/18) TRIMETHOPRIM (Verified Allergy, Unknown, 03/26/18) Objective Vital Signs Last 24 Hour Vital Signs Date Time Temp Pulse Resp B/P (MAP) Pulse Ox O2 Delivery O2 Flow Rate FiO2 03/30/18 09:00 Room Air 03/30/18 08:00 98.2 61 17 124/73 (90) 94 03/30/18 07:45 98 03/30/18 04:00 94 03/30/18 04:00 98.2 85 22 105/70 (82) 93 03/30/18 00:00 98.2 85 20 110/59 (76) 96 03/29/18 21:00 Room Air 03/29/18 20:00 85 03/29/18 19:54 98.2 88 20 121/74 (90) 94 03/29/18 16:00 94 03/29/18 16:00 97.2 85 20 130/86 (101) 96 03/29/18 12:00 95 03/29/18 12:00 97.3 94 18 127/74 (91) 95 Height (Feet): 5 Height (Inches): 7.00 Weight (Pounds): 112 Respiratory/Chest: lungs clear Cardiovascular: normal rate, regular rhythm, no gallop/murmur Abdomen: soft, non tender Extremities: no edema Microbiology Date/Time Source Procedure Growth Status 03/27/18 14:00 Urine,Clean Catch Urine Culture - Final YEAST Complete Laboratory Tests Test 03/30/18 11:00 White Blood Count 10.1 K/UL (4.8-10.8) Red Blood Count 3.62 M/UL (4.70-6.10) L Hemoglobin 9.6 G/DL (14.2-18.0) L Hematocrit 29.7 % (42.0-52.0) L Mean Corpuscular Volume 82 FL (80-99) Mean Corpuscular Hemoglobin 26.4 PG (27.0-31.0) L Mean Corpuscular Hemoglobin Concent 32.2 G/DL (32.0-36.0) Red Cell Distribution Width 14.2 % (11.6-14.8) Platelet Count 542 K/UL (150-450) H Mean Platelet Volume 4.2 FL (6.5-10.1) L Neutrophils (%) (Auto) % (45.0-75.0) Lymphocytes (%) (Auto) % (20.0-45.0) Monocytes (%) (Auto) % (1.0-10.0) Eosinophils (%) (Auto) % (0.0-3.0) Basophils (%) (Auto) % (0.0-2.0) Neutrophils % (Manual) Pending Lymphocytes % (Manual) Pending Platelet Estimate Pending Platelet Morphology Pending Sodium Level Pending Potassium Level Pending Chloride Level Pending Carbon Dioxide Level Pending Blood Urea Nitrogen Pending Creatinine Pending Estimat Glomerular Filtration Rate Pending Glucose Level Pending Calcium Level Pending Total Bilirubin Pending Aspartate Amino Transf (AST/SGOT) Pending Alanine Aminotransferase (ALT/SGPT) Pending Alkaline Phosphatase Pending Total Protein Pending Albumin Pending Globulin Pending Current Medications Medications (Trade) Dose Ordered Sig/Birdie Route PRN Reason Start Time Stop Time Status Last Admin Dose Admin Albuterol/ Ipratropium (Albuterol/ Ipratropium) 3 ml BIDPRN PRN HHN Shortness of Breath 03/29/18 08:30 04/01/18 08:29 Aripiprazole (Abilify) 15 mg Q12HR ORAL 03/28/18 09:00 04/26/18 08:59 03/30/18 08:35 Ascorbic Acid (Vitamin C) 500 mg DAILY ORAL 03/28/18 09:00 04/26/18 08:59 03/30/18 08:36 Bisacodyl (Dulcolax) 10 mg DAILYPRN PRN RECTAL Constipation 03/29/18 08:30 04/26/18 08:29 Bupropion HCl (Wellbutrin SR) 150 mg EVERY 12 HOURS ORAL 03/28/18 09:00 04/26/18 08:59 03/30/18 08:36 Docusate Sodium (Colace) 200 mg DAILY ORAL 03/28/18 09:00 04/26/18 08:59 03/30/18 08:36 Ergocalciferol (Drisdol) 50,000 intlu ONCE A WEEK ORAL 04/03/18 09:00 04/26/18 08:59 Ferrous Sulfate (Feosol) 325 mg DAILY ORAL 03/28/18 09:00 04/26/18 08:59 03/30/18 08:36 Fluconazole (Diflucan) 200 mg DAILY ORAL 03/29/18 10:00 04/05/18 09:59 03/30/18 08:35 Fluticasone Propionate (Flonase) 2 spray DAILY NASAL 03/28/18 09:00 04/26/18 08:59 03/30/18 08:36 Heparin Sodium (Porcine) (Heparin 5000 units/ml) 5,000 units EVERY 12 HOURS SUBQ 03/28/18 09:00 04/26/18 08:59 03/30/18 08:38 Lactobacillus Acidophilus (Culturelle) 1 tab DAILY ORAL 03/28/18 09:00 04/26/18 08:59 03/30/18 08:35 Memantine (Namenda) 5 mg TWICE A DAY ORAL 03/28/18 09:00 04/26/18 08:59 03/30/18 08:35 Methadone HCl (Methadone HCl) 30 mg DAILYPRN PRN ORAL 30-45 minutes before woundcare 03/28/18 09:00 04/03/18 08:59 03/29/18 15:38 Midodrine (Pro-Amatine) 5 mg BIDPRN PRN ORAL SBP less than 90 03/29/18 08:30 04/26/18 08:29 Pantoprazole (Protonix) 40 mg DAILY ORAL 03/28/18 09:00 04/26/18 08:59 03/30/18 08:36 Piperacillin Sod/ Tazobactam Sod 3.375 gm/Dextrose 100 ml @ 25 mls/hr EVERY 8 HOURS IV 03/28/18 14:00 04/01/18 11:59 03/30/18 06:13 Sennosides (Senokot) 8.6 mg DAILY ORAL 03/28/18 09:00 04/26/18 08:59 03/30/18 08:35 Sodium 1,000 ml @ 50 mls/hr Q20H IV 03/28/18 08:30 04/26/18 08:29 03/30/18 00:45 Zinc Sulfate (Zinc Sulfate) 220 mg DAILY ORAL 03/28/18 09:00 04/26/18 08:59 03/30/18 08:36 Luis Peraza MD Mar 30, 2018 11:33
[2018-03-30 11:51] LABS: ALANINE AMINOTRANSFERASE 21 U/L (12-78); ALBUMIN/GLOBULIN RATIO 0.4 (1.0-2.7); ALKALINE PHOSPHATASE 105 U/L (46-116); ANION GAP 3 mmol/L (5-15); ASPARTATE AMINO TRANSFERASE 17 U/L (15-37); BILIRUBIN,TOTAL 0.2 MG/DL (0.2-1.0); BLOOD UREA NITROGEN 9 mg/dL (7-18); CALCIUM 9.5 MG/DL (8.5-10.1); CARBON DIOXIDE 33 MMOL/L (21-32); CHLORIDE 102 MMOL/L (98-107); CREATININE 0.5 MG/DL (0.55-1.30); POTASSIUM 4.3 MMOL/L (3.5-5.1); SODIUM 138 MMOL/L (136-145)
[2018-03-30 12:00] VITALS: BP 110/76
--- NOTE | 2018-03-30 12:55 | General Surgery Progress Note ---
General Surgery-Progress Note Subjective Additional Comments no acute events. doing well. comfortable. Objective Last 24 Hour Vital Signs Date Time Temp Pulse Resp B/P (MAP) Pulse Ox O2 Delivery O2 Flow Rate FiO2 03/30/18 09:00 Room Air 03/30/18 08:00 98.2 61 17 124/73 (90) 94 03/30/18 07:45 98 03/30/18 04:00 94 03/30/18 04:00 98.2 85 22 105/70 (82) 93 03/30/18 00:00 98.2 85 20 110/59 (76) 96 03/29/18 21:00 Room Air 03/29/18 20:00 85 03/29/18 19:54 98.2 88 20 121/74 (90) 94 03/29/18 16:00 94 03/29/18 16:00 97.2 85 20 130/86 (101) 96 I&O Intake and Output 03/29/18 03/30/18 18:59 06:59 Intake Total 360 ml Output Total 1200 ml 400 ml Balance -840 ml -400 ml Intake Oral 360 ml Output Urine Total 1200 ml 400 ml Dressing: saturated Wound: other Drains: other Cardiovascular: RSR Respiratory: clear Abdomen: soft, flat, non-tender, present bowel sounds Extremities: other Laboratory Tests Test 03/30/18 11:00 White Blood Count 10.1 K/UL (4.8-10.8) Red Blood Count 3.62 M/UL (4.70-6.10) L Hemoglobin 9.6 G/DL (14.2-18.0) L Hematocrit 29.7 % (42.0-52.0) L Mean Corpuscular Volume 82 FL (80-99) Mean Corpuscular Hemoglobin 26.4 PG (27.0-31.0) L Mean Corpuscular Hemoglobin Concent 32.2 G/DL (32.0-36.0) Red Cell Distribution Width 14.2 % (11.6-14.8) Platelet Count 542 K/UL (150-450) H Mean Platelet Volume 4.2 FL (6.5-10.1) L Neutrophils (%) (Auto) % (45.0-75.0) Lymphocytes (%) (Auto) % (20.0-45.0) Monocytes (%) (Auto) % (1.0-10.0) Eosinophils (%) (Auto) % (0.0-3.0) Basophils (%) (Auto) % (0.0-2.0) Differential Total Cells Counted 100 Neutrophils % (Manual) 93 % (45-75) H Lymphocytes % (Manual) 2 % (20-45) L Monocytes % (Manual) 5 % (1-10) Eosinophils % (Manual) 0 % (0-3) Basophils % (Manual) 0 % (0-2) Band Neutrophils 0 % (0-8) Platelet Estimate Adequate Platelet Morphology Normal Hypochromasia 2+ Anisocytosis 1+ Sodium Level 138 MMOL/L (136-145) Potassium Level 4.3 MMOL/L (3.5-5.1) Chloride Level 102 MMOL/L (98-107) Carbon Dioxide Level 33 MMOL/L (21-32) H Anion Gap 3 mmol/L (5-15) L Blood Urea Nitrogen 9 mg/dL (7-18) Creatinine 0.5 MG/DL (0.55-1.30) L Estimat Glomerular Filtration Rate > 60 mL/min (>60) Glucose Level 119 MG/DL (74-106) H Calcium Level 9.5 MG/DL (8.5-10.1) Total Bilirubin 0.2 MG/DL (0.2-1.0) Aspartate Amino Transf (AST/SGOT) 17 U/L (15-37) Alanine Aminotransferase (ALT/SGPT) 21 U/L (12-78) Alkaline Phosphatase 105 U/L (46-116) Total Protein 6.9 G/DL (6.4-8.2) Albumin 2.0 G/DL (3.4-5.0) L Globulin 4.9 g/dL Albumin/Globulin Ratio 0.4 (1.0-2.7) L Plan Problems: (1) Decubitus ulcer Assessment & Plan: Pt presents with multiple pressure injuries. Full thickness pressure injury to Thoracic spine(L)2cm x (W)2cm x (D)2.6cm with undermining 9-3by 3.8cm @11o'clock. Borders and periwound indurated with non- blanchable erythema. Small amt non-odorous serosanguineous exudate noted. Inferior,but in close proximity to above wound 2nd full thickness pressure injury noted with 100% slough(L)0.4cm x (W)0.3cm with red indurated borders. #3 non-blanchable red areas noted to posterior R ribs in close proximity. Full thickness pressure injury to R trochanter (L)11.7cm x (W)10cm x(D)0.7cm .Wound bed moist,with 25% mixed slough/necrosis ,but otherwise granular with macerated. Periwound erythema with induration noted. Full thickness pressure injury to R Iliac(L)7cm x (W)6.7cm x (D) 1.2cm.[id number] by 2.1cm @12o'clock. Wound bed moist,granular with trace biofilm noted. small amt non-odorous serous exudate noted. Full thickness pressure injury to R Ischium (L)7cm x (W)5cm x (D) 3.5cm.Undermining 11-1by3.5cm @12 o'clock.Wound bed 75% mixed slough / necrosis.Small amt purulent exudate with mild odor noted. Full thickness pressure injury with 100% soft khanna necrosis noted to sacrum(L) 5.5cm x (W)2.5cm .Borders and periwound indurated with non-blanchable erythema noted . Scattered non-blanchable red areas noted to both shoulders, both elbows and R earlobe. Full thickness pressure injury to lateral R malleolus with 95% eschar with bordering soft slough (L)1.7cm x (W)2cm .Detached red borders .Periwound with non-blanchable erythema. Distal lateral R foot with stable dry eschar (L)1cm x (W)1cm Periwound without erythema or induration. R heel Boggy with Non-blanchable erythema with maroon discoloration centrally (L )2.2cm x (W)1.5cm 2.2cm x (W)1.4cm. L 1st metatarsal DTPI Noted .Wound bed fluctuant-maroon with red borders (L) 2.5cm x (W)1.5cm. DTPI noted to R achilles .Wound bed fluctuant -maroon with red borders(L)3cm x ( W)2 cm. Distal R tibia full thickness pressure injury with 75% slough otherwise pink with red borders. L heel Boggy with non-blanchable erythema Tx. Plan: Cleanse wounds R ischium,Sacrum and Back with Saline.Pack loosely with Therahoney impregnated gauze.Apply Cavilon Periwound. Cover with Abd pad with Tegaderm drsg daily and prn. Cleanse wound R trochanter with Saine.Loosely pack with Hydrogel impregnated Gauze.Cavilon to Borders.Cover with Optifoam drsg Daily and prn. Apply Cavilon to R earlobe and cover with Optifoam drsg. Change every 7 days and prn. Cleanse wound lateral R tibia with Saline.Apply Therahoney and cover with Optifoam drsg every 3 dyas and prn Maintain protective Optifoam drsgs to R and L hips and change every 7 days and prn. Apply Cavilon Wipes to Both heels, DTPIs and red areas both feet .Cover with Abd pads and wrap both lower ext with soft torrie.Change every 3 days and prn. Reposition at minimum every [address] tolerated[address] pillow between knees. Air Fluidized mattress. Off-load heels with pillow. Given improvement discussed care plan with patient. offered debridement of buttock sloth but patient states that he would prefer to wait to return to facility and have them perform interventions. okay from surgical standpoint (2) Sepsis Regulo Hobbs Mar 30, 2018 12:55
--- NOTE | 2018-03-30 13:59 | General Progress Note ---
Assessment/Plan Assessment/Plan Hypetension resolving. IV Abx per ID. DC planning Subjective Allergies: Coded Allergies: LEVOFLOXACIN (Verified Allergy, Unknown, 03/26/18) SULFAMETHOXAZOLE (Verified Allergy, Unknown, 03/26/18) TRIMETHOPRIM (Verified Allergy, Unknown, 03/26/18) Subjective No new c/o Objective Last 24 Hour Vital Signs Date Time Temp Pulse Resp B/P (MAP) Pulse Ox O2 Delivery O2 Flow Rate FiO2 03/30/18 12:00 98.6 96 18 110/76 (87) 96 03/30/18 09:00 Room Air 03/30/18 08:00 98.2 61 17 124/73 (90) 94 03/30/18 07:45 98 03/30/18 04:00 94 03/30/18 04:00 98.2 85 22 105/70 (82) 93 03/30/18 00:00 98.2 85 20 110/59 (76) 96 03/29/18 21:00 Room Air 03/29/18 20:00 85 03/29/18 19:54 98.2 88 20 121/74 (90) 94 03/29/18 16:00 94 03/29/18 16:00 97.2 85 20 130/86 (101) 96 Intake and Output 03/29/18 03/30/18 18:59 06:59 Intake Total 360 ml Output Total 1200 ml 400 ml Balance -840 ml -400 ml Intake Oral 360 ml Output Urine Total 1200 ml 400 ml Laboratory Tests 03/30/18 11:00: White Blood Count 10.1, Red Blood Count 3.62L, Hemoglobin 9.6L, Hematocrit 29.7L , Mean Corpuscular Volume 82, Mean Corpuscular Hemoglobin 26.4L, Mean Corpuscular Hemoglobin Concent 32.2, Red Cell Distribution Width 14.2, Platelet Count 542H, Mean Platelet Volume 4.2L, Neutrophils (%) (Auto) , Lymphocytes (%) (Auto) , Monocytes (%) (Auto) , Eosinophils (%) (Auto) , Basophils (%) (Auto) , Differential Total Cells Counted 100, Neutrophils % (Manual) 93H, Lymphocytes % (Manual) 2L, Monocytes % (Manual) 5, Eosinophils % (Manual) 0, Basophils % ( Manual) 0, Band Neutrophils 0, Platelet Estimate Adequate, Platelet Morphology Normal, Hypochromasia 2+, Anisocytosis 1+, Sodium Level 138, Potassium Level 4.3 , Chloride Level 102, Carbon Dioxide Level 33H, Anion Gap 3L, Blood Urea Nitrogen 9, Creatinine 0.5L, Estimat Glomerular Filtration Rate > 60, Glucose Level 119H, Calcium Level 9.5, Total Bilirubin 0.2, Aspartate Amino Transf (AST/ SGOT) 17, Alanine Aminotransferase (ALT/SGPT) 21, Alkaline Phosphatase 105, Total Protein 6.9, Albumin 2.0L, Globulin 4.9, Albumin/Globulin Ratio 0.4L Height (Feet): 5 Height (Inches): 7.00 Weight (Pounds): 112 Objective Cachectic Cv RR Lungs CTA Abd SNT. BS + E No CCE Decubs same Kinga Marcano MD Mar 30, 2018 13:59
--- NOTE | 2018-04-01 11:04 | Discharge Summary ---
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 Vital signs reveal hypotension. No leukocytosis, hemoglobin 8.8 and hematocrit 27.4. CO2 35. Albumin 1.9. Urinalysis with microscopic hematuria and pyuria. 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 CONSULTANTS: ID specialist Dr. Peraza surgery Dr. Hobbs [facility] COURSE: Patient admitted and started on the IV fluids and empiric antibiotics. Infectious disease specialist and surgery consults were requested. Blood culture were negative. Decubitus ulcers did not appear to be infected. Wound care provided as per surgeon's recommendation for multiply pressure decubitus ulcers, present on admission. Urine culture revealed yeast. Antibiotic regimen optimized as per ID recommendations. Patient to complete treatment with fluconazole as per ID specialist at [facility]. Wharf Attendant recommendations implemented in plan of care to improve nutritional status. Protein supplements added to diet. Hemoglobin and hematocrit were closely monitored with goal to keep hemoglobin above 7. Prior to discharge hemoglobin 9.6 hematocrit 29.7. Blood pressure was closely monitored. Patient started on midodrine as needed. Blood pressure stabilized. Supplemental oxygen provided as needed to keep pulse oximetry above 92%. Pulmonary toilet was on standby as needed. Pulse oximetry was stable on room air. DVT and GI prophylaxis provided. Bowel regimen instituted. Home medication regimen was reviewed and some mild altering medications were discontinued . Patient clinically stabilized and was ready for discharge to group home facility for continuation of care. 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 DISCHARGE INSTRUCTIONS: Patient was discharged to the group home facility. Follow up with medical doctor at the facility. I have been assigned to dictate discharge summary for this account. I was not involved in the patient's management. Nitza Joseph NP Apr 01, 2018 11:04
[2018-04-03] MEDS ORDERED: Vitamin D 50,000 units cap ORAL SCH (09:00)
== END 2018-03-30 13:55 | DRG 314 ==
LOC: EDBD 23:22 → EMR 23:58 → EDBEDREQ 03-27 01:13 → 2W 03-27 01:16 → EDBEDREQ 03-27 01:36 → 2E 03-28 07:48
DX: I95.9 Hypotension, unspecified (principal); E43 Unspecified severe protein-calorie malnutrition; B37.49 Other urogenital candidiasis; G82.20 Paraplegia, unspecified; Z68.1 Body mass index [BMI] 19.9 or less, adult; L89.90 Pressure ulcer of unspecified site, unspecified stage; D64.9 Anemia, unspecified; J98.4 Other disorders of lung; F32.9 Major depressive disorder, single episode, unspecified; Z98.1 Arthrodesis status; N31.9 Neuromuscular dysfunction of bladder, unspecified; Z88.1 Allergy status to other antibiotic agents; M40.299 Other kyphosis, site unspecified
CPT/HCPCS: 36415; 71045; 80048; 80053; 81003; 82550; 82553; 83605; 83735; 84484; 85007; 85025; 87040; 87070; 87081; 87086; 87181; 87205; 93005; 94760; 96361; 96365; 96367; 99291